=== PATIENT | male | born 1960 | race Caucasian/White ===

== ENCOUNTER 2020-08-13 08:48 | Inpatient (IN) ==
[2020-08-13 09:30] LABS: ABS Basophils 0.1 10^3/ul (0-0.2); ABS Eosinophils 0.3 10^3/ul (0-0.6); ABS Lymphocytes 1.5 10^3/ul (1.0-4.8); ABS Monocytes 1.1 10^3/ul (0-0.8); ABS Neutrophils 6.4 10^3/ul (1.5-7.7); Eosinophil % 3.6 %; Hematocrit 42 % (42-52); Hemoglobin 14.4 g/dL (14.0-18.0); Lymphocyte % 15.4 %; Mean Corpuscular HGB Conc 35 g/dL (31-36); Mean Corpuscular Hemoglobin 34 pg (27-31); Mean Corpuscular Volume 98 fL (80-94); Mean Platelet Volume 7.7 fL (7.4-10.4); Platelet Count 189 10^3/uL (150-450); Red Blood Count 4.26 10^6 /uL (4.18-5.48); Red Cell Distribution Width 12 % (10-15); White Blood Count 9.4 10^3/uL (3.5-10.8)
[2020-08-13 09:49] LABS: Albumin 4.2 g/dL (3.2-5.2); Albumin/Globulin Ratio 1.8 (1-3); BUN/Creatinine Ratio 25.6 (8-20); C Reactive Protein 10.3 mg/L (<8.01); EGFR Non-African American 95.8 (>60); Globulin 2.4 g/dL (2-4); Potassium 4.4 mmol/L (3.5-5.0); Total Bilirubin 0.4 mg/dL (0.2-1.0); Total Protein 6.6 g/dL (6.4-8.9)
[2020-08-13] MEDS ORDERED: Albuterol/Ipratropium NEB.SOL (2.5/0.5 MG) 3 ML NEB.SOLN INH ONE (10:19)
[2020-08-13] MEDS ORDERED: Albuterol HFA INHALER 8 gm MDI INH ONE (10:59)
[2020-08-13] MEDS ORDERED: methylPREDNISolone 125 mg 2 ML VIAL IV ONE (11:00)
[2020-08-13] MEDS ORDERED: cefTRIAXone 1 gm/50 mL NS BAG 1 GM/50 ML BAG IV ONE (11:00)
[2020-08-13] MEDS ORDERED: Azithromycin 500 mg/250 ml NS 500 MG/250 ML BAG IVPB ONE (11:00)
[2020-08-13] MEDS ORDERED: Iohexol 350 (CONTRAST) 500 ML MDV IV ONE (11:37)
[2020-08-13] MEDS ORDERED: Magnesium Hydroxide LIQ 30 ML UDC PO PRN (13:05)
[2020-08-13] MEDS ORDERED: Albuterol HFA INHALER 8 gm MDI INH SCH (16:00)
[2020-08-13 16:09] LABS: Urine Appearance Clear; Urine Bilirubin Negative (Negative); Urine Blood Negative (Negative); Urine Color Straw; Urine Glucose Negative (Negative); Urine Ketones Negative (Negative); Urine Nitrite Negative (Negative); Urine Protein Negative (Negative); Urine Specific Gravity 1.021 (1.010-1.030); Urine Urobilinogen Negative (Negative)
[2020-08-13] MEDS: Enoxaparin 40 MG/0.4 ML SYR SUBCUT SCH (16:20)
[2020-08-13] MEDS: Nicotine GUM 4MG FRUIT FLAVOR PO PRN ×2 (16:22→19:36)
[2020-08-13] MEDS ORDERED: Albuterol/Ipratropium NEB.SOL (2.5/0.5 MG) 3 ML NEB.SOLN INH SCH ×2 (18:00→19:00)
[2020-08-13] MEDS: CMC:Meloxicam 7.5 mg TAB (NF) PO SCH (19:36)
[2020-08-13] MEDS: Albuterol HFA INHALER 8 gm MDI INH SCH (19:45)
[2020-08-13] MEDS: Mometasone/Formoter 200/5 MDI INH SCH (19:45)
[2020-08-14] MEDS: Albuterol HFA INHALER 8 gm MDI INH SCH ×3 (03:41→19:33)
[2020-08-14] MEDS: Mometasone/Formoter 200/5 MDI INH SCH ×2 (07:23→19:37)
[2020-08-14] MEDS: Nicotine PATCH 21 MG/24 HR PATCH TRANSDERM SCH (08:44)
[2020-08-14] MEDS: CMC:Meloxicam 7.5 mg TAB (NF) PO SCH ×2 (08:46→21:38)
[2020-08-14] MEDS ORDERED: Fluticasone/Vilanterol MDI(NF) 100/25 MDI INH SCH (09:00)
[2020-08-14 09:25] LABS: BUN/Creatinine Ratio 22.9 (8-20); Calcium 9.5 mg/dL (8.6-10.3); EGFR African American 114.4 (>60); EGFR Non-African American 94.5 (>60); Potassium 4.4 mmol/L (3.5-5.0)
[2020-08-14] MEDS ORDERED: NS 0.9% 500 ml BAG 500 ML IV SCH (13:00)
[2020-08-14] MEDS: Enoxaparin 40 MG/0.4 ML SYR SUBCUT SCH (13:58)
[2020-08-14] MEDS ORDERED: Lorazepam PYXIS KEY PRN (18:47)
[2020-08-14] MEDS: LORazepam 2 mg VIAL 1 ml IV PUSH PRN ×2 (19:23→23:49)
[2020-08-15] MEDS: Nicotine PATCH 21 MG/24 HR PATCH TRANSDERM SCH (09:21)
[2020-08-15] MEDS: LORazepam 2 mg VIAL 1 ml IV PUSH PRN (09:21)
[2020-08-15] MEDS: CMC:Meloxicam 7.5 mg TAB (NF) PO SCH ×2 (09:21→20:12)
[2020-08-15] MEDS: Mometasone/Formoter 200/5 MDI INH SCH ×2 (09:25→19:29)
[2020-08-15 09:50] LABS: BUN/Creatinine Ratio 28.7 (8-20); Calcium 9.2 mg/dL (8.6-10.3); EGFR African American 108.3 (>60); EGFR Non-African American 89.5 (>60); Potassium 4.4 mmol/L (3.5-5.0)
[2020-08-15] MEDS: Venlafaxine XR 75 mg PO SCH (13:56)
[2020-08-15] MEDS: Enoxaparin 40 MG/0.4 ML SYR SUBCUT SCH (13:57)
[2020-08-16] MEDS: Mometasone/Formoter 200/5 MDI INH SCH ×2 (07:32→19:21)
[2020-08-16] MEDS: Venlafaxine XR 75 mg PO SCH (09:26)
[2020-08-16] MEDS: CMC:Meloxicam 7.5 mg TAB (NF) PO SCH ×2 (09:28→19:47)
[2020-08-16] MEDS: Nicotine PATCH 21 MG/24 HR PATCH TRANSDERM SCH (09:30)
[2020-08-16] MEDS: Enoxaparin 40 MG/0.4 ML SYR SUBCUT SCH (13:54)
[2020-08-16] MEDS: Levalbuterol 1.25MG/0.5ML NEB.SOL INH SCH (19:21)
[2020-08-17] MEDS: Levalbuterol 1.25MG/0.5ML NEB.SOL INH SCH ×4 (00:55→19:35)
[2020-08-17 06:41] LABS: BUN/Creatinine Ratio 27.7 (8-20); Calcium 8.7 mg/dL (8.6-10.3); EGFR African American 114.4 (>60); EGFR Non-African American 94.5 (>60); Potassium 3.8 mmol/L (3.5-5.0)
[2020-08-17] MEDS: Mometasone/Formoter 200/5 MDI INH SCH ×2 (07:40→19:36)
[2020-08-17] MEDS ORDERED: Calcium Carb (TUMS) 500 mg CHEW TAB PO PRN (08:30)
[2020-08-17] MEDS: CMC:Meloxicam 7.5 mg TAB (NF) PO SCH ×2 (08:43→21:02)
[2020-08-17] MEDS: Venlafaxine XR 75 mg PO SCH (08:44)
[2020-08-17] MEDS: Nicotine PATCH 21 MG/24 HR PATCH TRANSDERM SCH (08:45)
[2020-08-17] MEDS: methylPREDNISolone SOD 40 mg/ml 1 ml VIAL IV SCH ×2 (09:12→21:00)
[2020-08-17] MEDS: Enoxaparin 40 MG/0.4 ML SYR SUBCUT SCH (13:58)
[2020-08-18] MEDS: Levalbuterol 1.25MG/0.5ML NEB.SOL INH SCH ×3 (08:19→19:26)
[2020-08-18] MEDS: Mometasone/Formoter 200/5 MDI INH SCH ×2 (08:21→19:26)
[2020-08-18] MEDS: Venlafaxine XR 75 mg PO SCH (10:15)
[2020-08-18] MEDS: methylPREDNISolone SOD 40 mg/ml 1 ml VIAL IV SCH ×2 (10:17→21:08)
[2020-08-18] MEDS: CMC:Meloxicam 7.5 mg TAB (NF) PO SCH ×2 (10:17→21:09)
[2020-08-18] MEDS: Nicotine PATCH 21 MG/24 HR PATCH TRANSDERM SCH (10:18)
[2020-08-18] MEDS ORDERED: Perflutren Lipid Microsphere 3 ML VIAL ONE (13:20)
[2020-08-18] MEDS: Enoxaparin 40 MG/0.4 ML SYR SUBCUT SCH (13:45)
[2020-08-19] MEDS: methylPREDNISolone SOD 40 mg/ml 1 ml VIAL IV SCH ×2 (08:05→21:18)
[2020-08-19] MEDS: Venlafaxine XR 75 mg PO SCH (08:05)
[2020-08-19] MEDS: CMC:Meloxicam 7.5 mg TAB (NF) PO SCH ×2 (08:05→21:17)
[2020-08-19] MEDS: Nicotine PATCH 21 MG/24 HR PATCH TRANSDERM SCH (08:10)
[2020-08-19] MEDS: Levalbuterol 1.25MG/0.5ML NEB.SOL INH SCH ×2 (08:30→13:17)
[2020-08-19] MEDS: Mometasone/Formoter 200/5 MDI INH SCH ×2 (08:41→19:48)
[2020-08-19] MEDS: Enoxaparin 40 MG/0.4 ML SYR SUBCUT SCH (12:06)
[2020-08-19] MEDS: Nicotine GUM 4MG FRUIT FLAVOR PO PRN (15:44)
[2020-08-19] MEDS ORDERED: Levalbuterol 1.25MG/0.5ML NEB.SOL INH PRN (18:52)
[2020-08-20] MEDS: Mometasone/Formoter 200/5 MDI INH SCH ×2 (09:01→20:06)
[2020-08-20] MEDS: methylPREDNISolone SOD 40 mg/ml 1 ml VIAL IV SCH (09:05)
[2020-08-20] MEDS: Nicotine PATCH 21 MG/24 HR PATCH TRANSDERM SCH (09:07)
[2020-08-20] MEDS: Venlafaxine XR 75 mg PO SCH (09:07)
[2020-08-20] MEDS: CMC:Meloxicam 7.5 mg TAB (NF) PO SCH ×2 (09:07→21:06)
[2020-08-20] MEDS: Enoxaparin 40 MG/0.4 ML SYR SUBCUT SCH (12:41)
[2020-08-21] MEDS: Venlafaxine XR 75 mg PO SCH (08:42)
[2020-08-21] MEDS: CMC:Meloxicam 7.5 mg TAB (NF) PO SCH (08:43)
[2020-08-21] MEDS: Nicotine PATCH 21 MG/24 HR PATCH TRANSDERM SCH (08:46)
[2020-08-21] MEDS: Mometasone/Formoter 200/5 MDI INH SCH (09:04)
[2020-08-21 11:22] VITALS: BP 131/84
[2020-08-21] MEDS: Enoxaparin 40 MG/0.4 ML SYR SUBCUT SCH (12:40)
== END 2020-08-21 13:15 | disposition home or self-care (01) ==
LOC: ED 08:48 → MED 15:34
PROVIDERS: ADMIT Internal Medicine; ATTEND Student in an Organized Health Care Education/Training Program